=== PATIENT | female | born 1995 | race Caucasian/White ===

== ENCOUNTER 2020-11-13 10:36 | Emergency (ER) | payer BC, OTHER ==
[~2020-11-13] VITALS: Ht 157.5 cm; Wt 70.8 kg
[2020-11-13 10:45] VITALS: BP 135/60
--- NOTE | 2020-11-13 10:58 | PHYS DOC ---
Past History Past Medical History: No Pertinent History Past Surgical History: No Surgical History Smoking: Non-smoker Alcohol Use: Occasionally Drug Use: None General Adult EDM: Chief Complaint: HEADACHE HPI: HPI: History gained from patient. Patient is a 24-year-old female was no reported past medical history presents with chief complaint of headache. States she does get migraines ever since her delivery 4 months ago. States headaches seem to be increasing in frequency over the past month. She notes typically they involve her entire head but today it involves the right side of her head. States pain is aching and constant. States has been present for 2 days. Denies any fevers or vomiting. Denies neck pain or stiffness. Has tried ibuprofen at home with minimal relief. Is never been evaluated by a neurologist. Denies any history of brain imaging. Does not take any antimigraine medication regularly at home. Denies syncope. Does note some intermittent lightheadedness since her delivery and has been evaluated by her GENERAL DOC who thinks it could be related to slightly elated blood pressure at that time. Denies IV drug use. Denies photophobia or phonophobia. Denies acute vision or hearing changes. Patient denies acute onset of headache reaching maximal intensity in under one hour. This is neither the worst headache that Patient has ever experienced, nor was the onset timed with exertional activity or trauma. Patient has not ex perienced any fever, unusual neck pain or stiffness, syncope, or near syncope. Patient denies numbness, tingling, or weakness of the extremities. Patient also denies personal history of intracranial hemorrhage (including SAH), aneurysm, or AV malformation. Review of Systems: Review of Systems: Constitutional: Denies fever or chills Eyes: Denies change in visual acuity HENT: Denies nasal congestion or sore throat Respiratory: Denies cough or shortness of breath Cardiovascular: Denies chest pain or edema GI: Denies abdominal pain, nausea, vomiting, bloody stools or diarrhea : Denies dysuria Musculoskeletal: Denies back pain or joint pain Integument: Denies rash Neurologic: Positive for headache Endocrine: Denies polyuria or polydipsia Lymphatic: Denies swollen glands Psychiatric: Denies depression or anxiety Current Medications: Current Meds: Current Medications Medications (Trade) Dose Ordered Sig/Feliz Start Time Stop Time Status Last Admin Dose Admin Diphenhydramine HCl (Benadryl) 50 mg 1X ONCE 11/13/20 11:00 11/13/20 11:01 Prochlorperazine Edisylate (Compazine) 10 mg 1X ONCE 11/13/20 11:00 11/13/20 11:01 Sodium Chloride 1,000 ml @ 1,000 mls/hr 1X ONCE 11/13/20 11:00 11/13/20 11:59 Allergies: Allergies: Allergies Coded Allergies Type Severity Reaction Last Updated Verified Sulfa (Sulfonamide Antibiotics) Allergy Unknown 11/20/15 No Physical Exam: PE: Constitutional: Well developed, well nourished, no acute distress, non-toxic appearance. [] HENT: Normocephalic, atraumatic, bilateral external ears normal, oropharynx moist, no oral exudates, nose normal. [] Eyes: PERRLA, EOMI, conjunctiva normal, no discharge. [] Neck: Normal range of motion, no tenderness, supple, no stridor. [] Cardiovascular:Heart rate regular rhythm, no murmur [] Lungs & Thorax: Bilateral breath sounds clear to auscultation [] Abdomen: soft, no tenderness, no masses, no pulsatile masses. [] Skin: Warm, dry, no erythema, no rash. [] Back: No tenderness, no CVA tenderness. [] Extremities: No tenderness, no cyanosis, no clubbing, ROM intact, no edema. [] Neurologic: Alert with intact cognitive function. No aphasia, dysarthria, or neglect. GCS 15. Pupils 3 mm briskly reactive b/l. No APD present. Cranial nerves 2-12 grossly intact; no facial asymmetry present, tongue midline, shoulder shrugging strength intact. Strength 5/5 and symmetric throughout. Light touch sensation intact throughout. Cerebellar testing appropriate without evidence of dysdiadochokinesia. DTR's 2+ in all 4 extremities. Negative pronator drift bilaterally. Gait normal Psychologic: Affect normal, judgement normal, mood normal. [] Current Patient Data: Labs: Laboratory Tests Test 11/13/20 11:24 Bedside Urine HCG, Qualitative hcg negative Current Medications Medications (Trade) Dose Ordered Sig/Feliz Route PRN Reason Start Time Stop Time Status Last Admin Dose Admin Sodium Chloride 1,000 ml @ 1,000 mls/hr 1X ONCE IV 11/13/20 11:00 11/13/20 11:59 11/13/20 11:14 Diphenhydramine HCl (Benadryl) 50 mg 1X ONCE IVP 11/13/20 11:00 11/13/20 11:01 DC 11/13/20 11:16 Prochlorperazine Edisylate (Compazine) 10 mg 1X ONCE IV 11/13/20 11:00 11/13/20 11:01 DC 11/13/20 11:15 Vital Signs: Vital Signs Date Time Temp Pulse Resp B/P (MAP) Pulse Ox O2 Delivery O2 Flow Rate FiO2 11/13/20 10:45 98.2 70 20 135/60 (85) 99 Room Air EKG: EKG: [] Radiology/Procedures: Radiology/Procedures: [address] [address] IMAGING REPORT Signed PATIENT: NIKKO MELTON ACCOUNT: [id number] : 1995 LOCATION: ER AGE: 25 SEX: F EXAM STATUS: REG ER ORD. PHYSICIAN: SERGIO BOURNE DO REASON: right temporal SORENSEN. hx migraines. PROCEDURE: CT HEAD WO CONTRAST Examination: CT HEAD/BRAIN WO History: right temporal SORENSEN. hx migraines. Comparison/Correlation: None Findings: Axial images of the head were obtained without contrast. Ventricles are normal size. No intracranial hemorrhage, midline shift, or mass effect. No depressed fracture. Visualized paranasal sinuses are unremarkable. Mastoid air cells are clear. Impression: No suspicious process. PQRS Compliance Statement: One or more of the following individualized dose reduction techniques were utilized for this examination: 1. Automated exposure control 2. Adjustment of the mA and/or kV according to patient size 3. Use of iterative reconstruction technique Electronically signed by: Angel Cary MD (11/13/2020 11:10 AM) [id number] DICTATED AND SIGNED BY: ANGEL CARY MD DATE: 11/13/20 1107 CC: PCP,SUSHMA; SERGIO BOURNE DO ~MTH0 0 [] Heart Score: Risk Factors: Risk Factors: DM, Current or recent (<one month) smoker, HTN, HLP, family history of CAD, obesity. Risk Scores: Score 0 - 3: 2.5% MACE over next 6 weeks - Discharge Home Score 4 - 6: 20.3% MACE over next 6 weeks - Admit for Clinical Observation Score 7 - 10: 72.7% MACE over next 6 weeks - Early Invasive Strategies Course & Med Decision Making: Course & Med Decision Making Pertinent Labs and Imaging studies reviewed. (See chart for details) [] Patient is a 25-year-old female who presents with chief complaint of right- sided headache. States he has had intermittent migraines over the past several months. Initial vital signs unremarkable. Initial neurologic exam without foca l deficit. Low suspicion for infectious etiology. Afebrile. No nuchal rigidity noted. CT imaging was obtained given she has never had advanced head imaging before. This was grossly unremarkable. negative. I not feel any further laboratory analysis will yield further diagnostic information. She was given migraine medication. On repeat assessment she states her headache is resolved. Her vital signs been stable and her repeat neurologic exam remains unchanged. Patient is requesting discharge home. I do feel this is reasonable. Instructed to follow-up with her primary care physician. Return precautions discussed and understood. Stable for discharge. Dragon Disclaimer: [place] Disclaimer: This electronic medical record was generated, in whole or in part, using a voice recognition dictation system. Departure Departure: Impression: Primary Impression: Headache Qualified Codes: R51.9 - Headache, unspecified Disposition: 01 DC HOME SELF CARE/HOMELESS Condition: STABLE Referrals: PCP,SUSHMA (PCP) LUIS ANNE MD, AHMED M MD Patient Instructions: Migraine Headache Additional Instructions: Please follow-up with your primary care physician in the next 2 to 3 days. SERGIO BOURNE DO Nov 13, 2020 10:58
[2020-11-13] MEDS ORDERED: PROCHLORPERAZINE 10 MG/2 ML VIAL. IV ONE (11:00)
[2020-11-13] MEDS ORDERED: IV NORMAL SALINE 1,000ML 1,000 ML IV ONE (11:00)
[2020-11-13] MEDS ORDERED: diphenhydrAMINE 50 MG/ML VIAL IVP ONE (11:00)
--- NOTE | 2020-11-13 11:12 | RAD ---
Examination: CT HEAD/BRAIN WO History: right temporal SORENSEN. hx migraines. Comparison/Correlation: None Findings: Axial images of the head were obtained without contrast. Ventricles are normal size. No int racranial hemorrhage, midline shift, or mass effect. No depressed fracture. Visualized paranasal sinu ses are unremarkable. Mastoid air cells are clear. Impression: No suspicious process. PQRS Compliance Statement: One or more of the following individualized dose reduction techniques were utilized for this examinat ion: 1. Automated exposure control 2. Adjustment of the mA and/or kV according to patient size 3. Use of iterative reconstruction technique Electronically signed by: Angel Avelar MD (11/13/2020 11:10 AM) [id number]
== END 2020-11-13 12:05 | disposition home or self-care (01) ==
LOC: ER 10:36
DX: G43.909 Migraine, unspecified, not intractable, without status migrainosus (principal); R20.2 Paresthesia of skin; Z88.2 Allergy status to sulfonamides
CPT/HCPCS: 70450; 81025; 96361; 96374; 96375; 99284; J0780; J1200; J7030

== ENCOUNTER 2021-03-02 07:52 | Emergency (ER) | payer MEDICAID, OTHER ==
[~2021-03-02] VITALS: Ht 157.5 cm; Wt 74.5 kg
[2021-03-02] MEDS ORDERED: ORPH-16 PO (08:57)
--- NOTE | 2021-03-02 08:57 | PHYS DOC ---
Past History Past Medical History: No Pertinent History, Migraines, Other Additional Past Medical Histor: scoliosis 15 degrees Past Surgical History: No Surgical History Smoking: Non-smoker Alcohol Use: None Drug Use: None Social History Lives with General Adult EDM: Chief Complaint: BACK INJURY HPI: HPI: 25-year-old female presents to the ED with thoracic back pain. This began at 730 this morning when patient was walking down stairs and tripped and fell on buttocks and slid down 10 steps. Patient claims to have had sensation of electric shock shock going up her backand left ankle pain directly after the fall, but now claims to only have 7 out of 10 pain bilaterally on her paraspinal muscles in her thoracic region which she claims to be soreness and this radiates to her chest. Patient denies this ever happening before. Patient denies being on any blood thinners, takes no medications. Patient remembers all the events of the fall and denies any syncope. She denies any fever chills nausea vomiting. Patient has not taken any medication to alleviate the pain. Patient denies hitting her head. Patient denies any extremity pain or loss of sensation. Patient denies any bowel or urinary incontinence. Review of Systems: Review of Systems: Constitutional: Denies fever or chills Eyes: Denies redness or eye pain HENT: Denies nasal congestion or sore throat Respiratory: Denies cough or shortness of breath Cardiovascular: Denies chest pain or palpitations. Claims to have sore chest. GI: Denies abdominal pain, nausea, or vomiting. Denies incontinence. : Denies dysuria or hematuria. Denies incontinence Musculoskeletal: Upper thoracic back pain BL Integument: Denies rash or skin lesions Neurologic: Denies headache, focal weakness or sensory changes Complete systems were reviewed and found to be within normal limits, except as documented in this note. Family History: Family History: Patient denies any family history. Current Medications: Current Meds: Patient denies any current medication use with the exception of contraceptive shot Allergies: Allergies: Allergies Coded Allergies Type Severity Reaction Last Updated Verified Sulfa (Sulfonamide Antibiotics) Allergy Unknown 03/02/21 No Uncoded Allergies Type Severity Reaction Last Updated Verified UNKOWN MED FOR STREP Allergy Unknown 03/02/21 Physical Exam: PE: Constitutional: Well developed, well nourished, no acute distress, non-toxic appearance HENT: Normocephalic, atraumatic Eyes: PERRL, EOMI, conjunctiva normal, no discharge Neck: Normal range of motion, no tenderness, supple Lungs & Thorax: No respiratory distress, equal chest rise and fall, CTAB Abdomen: Soft, no tenderness Skin: Warm, dry, no erythema, no rash Back: Bilateral tenderness in upper thoracic region Extremities: No tenderness, ROM intact, no edema Neurologic: Alert and oriented X 3, normal motor function, normal sensory function, no focal deficits noted Psychologic: Affect normal, judgment normal Current Patient Data: Vital Signs: Vital Signs Date Time Temp Pulse Resp B/P (MAP) Pulse Ox O2 Delivery O2 Flow Rate FiO2 03/02/21 08:22 98.1 73 18 111/72 (85) Room Air EKG: EKG: [] Radiology/Procedures: Radiology/Procedures: [] Heart Score: C/O Chest Pain: N/A Course & Med Decision Making: Course & Med Decision Making 25-year-old female presents to the ED after falling down stairs this morning and landing on buttocks. Patient was seen and examined in the ED felt that her injury was just an upper thoracic strain from the fall. Patient denied hitting head. It was felt that no imaging or labs needed to be done. Patient was given medication for pain and inflammation and was instructed to ice and rest. [place] Disclaimer: [place] Disclaimer: This electronic medical record was generated, in whole or in part, using a voice recognition dictation system. Departure Departure: Impression: Primary Impression: Fall Qualified Codes: W19.XXXA - Unspecified fall, initial encounter Additional Impression: Acute thoracic back pain Qualified Codes: M54.6 - Pain in thoracic spine Disposition: 01 DC HOME SELF CARE/HOMELESS Condition: STABLE Referrals: PCP,NO (PCP) Patient Instructions: Fall Prevention and Home Safety, [id number], Thoracic Strain, [id number] Additional Instructions: Ice to area of discomfort 20 minutes on then leave off for next 20 minutes. Repeat several times daily for the next few days. After 72 hours may introduce heat. Take aadj-top-mrzxago ibuprofen and/or Tylenol as needed for pain. Scripts Orphenadrine Citrate (ORPHENADRINE CITRATE) 100 Mg Tablet.er 1 TAB PO BID PRN for MUSCLE PAIN, #14 TAB 0 Refills Prov: LAWRENCE MONTGOMERY DO 03/02/21 LAWRENCE MONTGOMERY DO Mar 02, 2021 08:57
[2021-03-02] MEDS ORDERED: IBUPROFEN 400 MG TABLET. PO ONE (09:00)
[2021-03-02] MEDS ORDERED: ORPHENADRINE CITRATE 60 MG/2 ML VIAL. IM ONE (09:00)
[2021-03-02 09:56] VITALS: BP 106/76
== END 2021-03-02 10:01 | disposition home or self-care (01) ==
LOC: ER 07:52
DX: M54.6 Pain in thoracic spine (principal); M25.572 Pain in left ankle and joints of left foot; G43.909 Migraine, unspecified, not intractable, without status migrainosus; Z88.2 Allergy status to sulfonamides; W01.0XXA Fall on same level from slipping, tripping and stumbling without subsequent striking against object, initial encounter; Y93.01 Activity, walking, marching and hiking; Y92.89 Other specified places as the place of occurrence of the external cause; Y99.8 Other external cause status
CPT/HCPCS: 96372; 99283; J2360

== ENCOUNTER 2021-07-14 20:36 | Emergency (ER) | payer OTHER ==
[~2021-07-14] VITALS: Ht 157.5 cm; Wt 74.5 kg
[~2021-07-14 20:36] MED LIST: ORPH-16 PO
--- NOTE | 2021-07-14 23:23 | PHYS DOC ---
Past History Past Medical History: Migraines, Other Additional Past Medical Histor: scoliosis 15 degrees Past Surgical History: No Surgical History Smoking: Non-smoker Alcohol Use: None Drug Use: None General Adult EDM: Chief Complaint: SORE THROAT HPI: HPI: 26-year-old female presents to the emergency department with Covid exposure and sore throat. She reports that her boyfriend has symptomatic Covid and tested positive yesterday. She is concerned she may have Covid. She reports her sore throat is mild, not associate with any shortness of breath, chest pain, neck pain, fever, chills. Both of her children have upper respiratory symptoms. Her daughter tested positive for Covid last week. The patient denies nausea, vomiting, fever, chills, chest pain, shortness of breath, abdominal pain, urinary symptoms, cough, recent trauma, or any other complaints. Review of Systems: Review of Systems: ROS is otherwise negative except for what was mentioned in the HPI Allergies: Allergies: Allergies Coded Allergies Type Severity Reaction Last Updated Verified Sulfa (Sulfonamide Antibiotics) Allergy Unknown 03/02/21 No Uncoded Allergies Type Severity Reaction Last Updated Verified UNKOWN MED FOR STREP Allergy Unknown 03/02/21 Physical Exam: PE: Constitutional: No acute distress, non-toxic appearance. HENT: Atraumatic, bilateral external ears normal, nose normal. No pharyngeal erythema, oropharynx is clear, no exudates Eyes: PERRLA, EOMI, conjunctiva normal, no discharge. Neck: Normal range of motion, supple, no stridor. Cardiovascular: Heart rate regular rhythm. 2+ radial pulses Lungs & Thorax: No respiratory distress, symmetrical expansion. Abdomen: Soft, no tenderness Skin: Warm, dry. Extremities: No tenderness, no cyanosis, ROM intact, no edema. Neurologic: Alert and oriented X 3, normal motor function, normal sensory function, no focal deficits noted. Non ataxic gait. GCS 15. Psychologic: Affect normal, judgment normal, mood normal. Current Patient Data: Vital Signs: Vital Signs Date Time Temp Pulse Resp B/P (MAP) Pulse Ox O2 Delivery O2 Flow Rate FiO2 07/14/21 21:45 98.7 92 18 149/73 96 Room Air Heart Score: C/O Chest Pain: N/A Course & Med Decision Making: Course & Med Decision Making Patient looks and appears well, her family symptomatic with Covid and she was tested today. She is a presumed person under investigation for COVID-19. She was discharged with test results pending. Return precautions were discussed. My Orders - KALIN KIRKPATRICK DO Procedure Category Date Status Time Dexamethasone Sod PHA 07/14/21 Logged Phos (Decadron) 23:30 Coronavirus-19, Pcr LAB 07/14/21 Logged ([facility]) 23:19 Departure Departure: Impression: Primary Impression: Person under investigation for COVID-19 Disposition: HOME / SELF CARE / HOMELESS Condition: GOOD Referrals: CHAPITO LEWIS PAC (PCP) Patient Instructions: Viral and Bacterial Pharyngitis, [id number] Additional Instructions: You were seen in the emergency department for a upper respiratory tract infection, most likely from COVID-19. You should return to the ED if you develop worsening cough, shortness of breath, chest pain, or any other new or co ncerning symptoms. You can use an OTC sinus rinse to help with sinus congestion. Your cough may persist for a few weeks but your other symptoms should gradually improve. You should make sure to drink plenty of fluids at home. You may use Tylenol at home for fevers every 4-6 hours no more than 4000 mg/day. Please remember it is very important that you self isolate/quarantine at home, stay away from family and friends, and stay away from work until you are cleared by your physician or you test negative and are asymptomatic. KALIN KIRKPATRICK DO Jul 14, 2021 23:23
[2021-07-14] MEDS ORDERED: DEXAMETHASONE SOD PHOS 10 MG/ML VIAL. IM ONE (23:30)
[2021-07-15 00:05] VITALS: BP 106/76
== END 2021-07-15 00:05 | disposition home or self-care (01) ==
LOC: ER 20:36
DX: J02.9 Acute pharyngitis, unspecified (principal); Z20.822 Contact with and (suspected) exposure to COVID-19
CPT/HCPCS: 99283; C9803; U0003